=== PATIENT | female | born 1950 | race Caucasian/White ===

== ENCOUNTER 2016-07-20 20:27 | Emergency (ER) | payer MEDICAID, OTHER ==
[2016-07-20] MEDS ORDERED: NS 1,000 ML IV ONE (20:49)
[2016-07-20] MEDS ORDERED: KETOROLAC 30 MG/1 ML SDV IVP ONE (20:49)
[2016-07-20 20:52] VITALS: RESP 14; TEMP 100; O2SAT 95
[2016-07-20 21:09] LABS: % IMMATURE GRANULYOCYTES 0.3 % (0.0-1.1); ABSOLUTE IMMATURE GRANULOCYTES 0.04 10^3/uL (0.00-0.10); ADD DIFF? NO; ADD MORPH? NO; ADD SCAN? NO; ATYPICAL LYMPHOCYTE FLAG 0 (0-99); FRAGMENT RBC FLAG 0 (0-99); HEMATOCRIT 38.6 % (38.0-47.0); LEFT SHIFT FLG 0 (0-99); LIPEMIA HEMOLYSIS FLAG 80 (0-99); MEAN CELL HEMOGLOBIN CONCENTR. 33.7 g/dL (32.4-36.7); MEAN PLATELET VOLUME 11.4 fL (8.7-11.7); PLATELET CLUMPS FLAG 0 (0-99); PLATELET COUNT 199 10^3/uL (150-400); RED BLOOD CELL COUNT 4.65 10^6/uL (4.18-5.33); RED CELL DISTRIBUTION WIDTH 16.6 % (11.5-15.2)
[2016-07-20 21:21] LABS: CALCIUM 9.3 mg/dL (8.5-10.4); CREATININE 1.1 mg/dL (0.6-1.0); POTASSIUM 4.4 mEq/L (3.5-5.2)
--- NOTE | 2016-07-20 21:29 | UCPHY ---
H & P Patient Type: Established Chief Complaint Nursing Narrative: abdominal pain, >LLQ, bloating,constipation, fever for 3 days Time Seen by Provider: 07/20/16 20:49 HPI/ROS: This patient complains of left lower quadrant pain achy in nature gradual in onset over the past 48 hours currently 6/10 associated with some fever and chills that feels identical to prior diverticulitis. She reports the pain worsens with movement. No other exacerbating or alleviating factors are noted. She does report a smaller caliber of her stool over the past 2 days. ROS: No other constitutional symptoms. HEENT: No cold symptoms pulmonary: No cough. No chest pain or dyspnea. Cardiovascular: No lightheadedness. GI: No upper belly pain. No nausea vomiting. Changes in stool mentioned in HPI. : No symptoms. Integumentary: No rash. 10 point ROS is otherwise negative. Source: Patient Exam Limitations: No limitations - Personal History Current Tetanus Diphtheria and Acellular Pertussis (TDAP): Yes Tetanus Vaccine Date: unsure - Medical/Surgical History PMH: Diverticulitis Hx Asthma: No Hx Chronic Respiratory Disease: No Hx Diabetes: No Hx Cardiac Disease: No Hx Renal Disease: No Hx Cirrhosis: No Hx Alcoholism: No Hx HIV/AIDS: No Hx Splenectomy or Spleen Trauma: No Other PMH: insomnia, bilateral cataract sx,hypertension - Family History Significant Family History: No pertinent family hx - Social History Smoking Status: Never smoked Alcohol Use: None Drug Use: None - Physical Exam Exam: General Appearance: Alert, no distress. Eyes: Pupils equal and round no pallor or injection. ENT, Mouth: Mucous membranes moist. Respiratory: There are no retractions, lungs are clear to auscultation. Cardiovascular: Regular rate and rhythm. Gastrointestinal: Normoactive, soft, positive moderate left lower quadrant tenderness. No guarding or rebound. Neurological: Alert with no focal deficits. Skin: Warm and dry, no rashes. Musculoskeletal: Neck is supple nontender. Extremities are symmetrical, full range of motion. Psychiatric: Mood and affect are normal DIFFERENTIAL DIAGNOSIS: After history and physical exam differential diagnosis was considered for diverticulitis, UTI, goes patient Constitutional: Initial Vital Signs Temperature (C) 37.8 C 07/20/16 20:48 Heart Rate 97 07/20/16 20:48 Respiratory Rate 14 07/20/16 20:48 Blood Pressure 159/97 H 07/20/16 20:48 O2 Sat (%) 95 07/20/16 20:48 O2 Delivery Mode Room Air Allergies/Adverse Reactions: Penicillins Allergy (Verified 07/20/16 20:47) Home Medications: Medication Instructions Recorded Lisinopril 07/20/16 Moxifloxacin HCl 400 mg PO DAILY #9 tablet 07/20/16 Medical Decision Making ED Course/Re-evaluation: Studies [place] [id number] with left shift. Urinalysis is normal. Chemistries are normal. Given prior episode of diverticulitis with similar symptoms and findings and classic findings currently, I do think this patient has diverticulitis. No surgical abdomen or other concerning findings. She is tolerating good p.o. intake. She has a variety of antibiotic allergies a varying severity ease including rash to penicillin and more significant episode of allergic reaction apparently to Flagyl. Given these findings give her dose of Levaquin tonight here with a plan does pickup moxifloxacin in the morning. Counseled her regarding this. - Data Points Laboratory Results: Laboratory Results 07/20/16 21:05 07/20/16 21:05 07/20/16 07/20/16 07/20/16 21:30 21:05 21:05 WBC 14.53 10^3/uL H 10^3/uL (3.80-9.50) RBC 4.65 10^6/uL 10^6/uL (4.18-5.33) Hgb 13.0 g/dL g/dL (12.6-16.3) Hct 38.6 % % (38.0-47.0) MCV 83.0 fL fL (81.5-99.8) MCH 28.0 pg pg (27.9-34.1) MCHC 33.7 g/dL g/dL (32.4-36.7) RDW 16.6 % H % (11.5-15.2) Plt Count 199 10^3/uL 10^3/uL (150-400) MPV 11.4 fL fL (8.7-11.7) Neut % (Auto) 70.0 % % (39.3-74.2) Lymph % (Auto) 21.7 % % (15.0-45.0) [place] % (Auto) 6.7 % % (4.5-13.0) Eos % (Auto) 0.8 % % (0.6-7.6) Baso % (Auto) 0.5 % % (0.3-1.7) Nucleat RBC Rel Count 0.0 % % (0.0-0.2) Absolute Neuts (auto) 10.18 10^3/uL H 10^3/uL (1.70-6.50) Absolute Lymphs (auto) 3.16 10^3/uL H 10^3/uL (1.00-3.00) Absolute Monos (auto) 0.97 10^3/uL H 10^3/uL (0.30-0.80) Absolute Eos (auto) 0.11 10^3/uL 10^3/uL (0.03-0.40) Absolute Basos (auto) 0.07 10^3/uL 10^3/uL (0.02-0.10) Absolute Nucleated RBC 0.00 10^3/uL 10^3/uL (0-0.01) Immature Gran % 0.3 % % (0.0-1.1) Immature Gran # 0.04 10^3/uL 10^3/uL (0.00-0.10) Sodium 141 mEq/L mEq/L (134-144) Potassium 4.4 mEq/L mEq/L (3.5-5.2) Chloride 104 mEq/L mEq/L (97-110) Carbon Dioxide 21 mEq/l L mEq/l (22-31) Anion Gap 16 mEq/L mEq/L (8-16) BUN 17 mg/dL mg/dL (7-23) Creatinine 1.1 mg/dL H mg/dL (0.6-1.0) Estimated GFR 50 Glucose 99 mg/dL mg/dL (70-100) Calcium 9.3 mg/dL mg/dL (8.5-10.4) Urine Color PALE YELLOW Urine Appearance CLEAR Urine pH 6.0 (5.0-7.5) Ur Specific [place] <= 1.005 (1.002-1.030) Urine Protein NEGATIVE (NEGATIVE) Urine Ketones NEGATIVE (NEGATIVE) Urine Blood NEGATIVE (NEGATIVE) Urine Nitrate NEGATIVE (NEGATIVE) Urine Bilirubin NEGATIVE (NEGATIVE) Urine Urobilinogen 0.2 EU EU (0.2-1.0) Ur Leukocyte Esterase NEGATIVE (NEGATIVE) Urine Glucose NEGATIVE (NEGATIVE) Medications Given: Discontinued Medications Sodium Chloride (Ns) 1,000 mls @ 0 mls/hr IV ONCE ONE PRN Reason: Wide Open Stop: 07/20/16 20:50 Last Admin: 07/20/16 21:00 Dose: 1,000 mls Ketorolac Tromethamine (Toradol) 15 mg IVP EDNOW ONE Stop: 07/20/16 20:50 Last Admin: 07/20/16 21:19 Dose: 15 mg Levofloxacin (Levaquin) 500 mg PO EDNOW ONE PRN Reason: Protocol Stop: 07/20/16 21:27 Last Admin: 07/20/16 21:54 Dose: 500 mg Departure - Departure Disposition: Home, Routine, Self-Care Clinical Impression: Diverticulitis Qualifiers: Diverticulitis site: unspecified part of intestinal tract Diverticulitis bleeding: without bleeding Diverticulitis complication: without perforation or abscess Qualified Code(s): K57.92 - Diverticulitis of intestine, part unspecified, without perforation or abscess without bleeding Condition: Good Instructions: Diverticulitis (ED), Diverticulitis Diet (ED) Additional Instructions: Diagnosis: Diverticulitis Plan: Ibuprofen Tylenol for discomfort as needed Moxifloxacin antibiotic. Next dose tomorrow. Take this daily Soft diet until you feel improved. Go to the emergency department for any significant worsening despite the treatment plan Referrals: NONE *PRIMARY CARE P,. [Primary Care Provider] - As per Instructions Prescriptions: Moxifloxacin HCl 400 mg PO DAILY #9 tablet - PQRS PQRS Measurement: 134: Depression screening and followup, PRIME MD-PHQ2 (12 years and older) Over the last 2 weeks, how often have you been bothered by any of the following problems? 1. Feeling down, depressed, or hopeless? 2. Little interest or pleasure in doing things? Patient answered no to both 1 and 2 130: Documentation of medications. Reviewed all patient medications, doses, route and frequency. 226: Do you smoke? [No.] 47: 65 and older: Advanced care planning. Patient designates surrogate decision maker as spouse 51: 18 years old and older with diagnosis of COPD, spirometry performance. NA 52: 18 years old and older with COPD and symptoms of COPD or FEV1<60% predicted prescribed a B Agonist. NA
[2016-07-20 21:34] LABS: COLOR PALE YELLOW; LEUKOCYTE ESTERASE,URINE NEGATIVE (NEGATIVE); NITRITE,URINE NEGATIVE (NEGATIVE)
[2016-07-20 22:00] VITALS: BP 148/88; PULSE 88
== END 2016-07-20 21:58 | disposition home or self-care (01) ==
LOC: CED 20:27
DX: K57.92 Diverticulitis of intestine, part unspecified, without perforation or abscess without bleeding (principal)
CPT/HCPCS: 96361; 96374; G0463; J1885; 80048-PO; 81003-PO; 85025-PO; 99215-PO

== ENCOUNTER → 2017-01-15 | Outpatient (CLI) | payer OTHER | LOC: GIMAGING 11:41 | PROVIDERS: ATTEND Family Medicine | DX: M25.861 Other specified joint disorders, right knee (principal); M25.562 Pain in left knee | CPT/HCPCS: 73562-PO; 73565-PO ==

== ENCOUNTER → 2018-06-25 | Outpatient (CLI) | payer OTHER | LOC: CIMAGING 09:33 | PROVIDERS: ATTEND Family Medicine | DX: Z12.31 Encounter for screening mammogram for malignant neoplasm of breast (principal) ==